=== PATIENT | male | born 1990 | race Caucasian/White ===

== ENCOUNTER 2018-08-07 20:09 | Emergency (ER) | payer SELFPAY ==
[~2018-08-07] VITALS: Ht 177.8 cm; Wt 104.3 kg
--- NOTE | 2018-08-07 20:11 | NUR ---
Pt w/c assisted to bed 2.
[2018-08-07 20:15] VITALS: BP 157/101
[2018-08-07 20:19] VITALS: BP 157/101
--- NOTE | 2018-08-07 20:19 | NUR ---
BIB SELF. AAO X4 PT REFFERRED FROM URGENT CARE FOR LACERATION TO THE BACK OF LEFT ANKLE, PT STATES HE CUT HIS ANKLE AROUND 2AM ON [employer] [facility] [employer], PT ADMITS TO DRINKING AT THE TIME OF INCIDENT. UNKOWN LAST TETANUS VACCINATION. BANDAGE OVER WOUND AT THIS TIME, BLEEDING CONTROLLED. CAP REFILL <3 SECS TO L FOOT, + SENSATION. PT UNABLE TO FULLY BEND FOOT UP. PT STATES 6/10 WHEN AMBULATING. ER TO EVALUATE PT.
--- NOTE | 2018-08-07 20:26 | NUR ---
KAREN MARTINEZ AT BEDSIDE FOR PT EVAL
[2018-08-07] MEDS ORDERED: BACITRACIN OINT 500 UNITS/GM PKT TP ONE (20:35)
--- NOTE | 2018-08-07 20:52 | NUR ---
PT WOUND COVERED WITH NON ADHERENT DRESSING AND WRAPPED WITH ROLLER GAUZE AFTER BACITRACIN APPLIED. +CSM
--- NOTE | 2018-08-07 20:57 | NUR ---
Pt report given to SLIM Torres. Transfer of care at this time.
--- NOTE | 2018-08-07 21:15 | NUR ---
Patient discharged with v/s stable. Written and verbal after care instructions given and explained. Patient alert, oriented and verbalized understanding of instructions. Wheelchair assisted by EMT. All questions addressed prior to discharge. ID band removed. Patient advised to follow up with PMD. Rx of ibuprofen and bacitriacin given. Patient educated on indication of medication including possible reaction and side effects. Opportunity to ask questions provided and answered.
== END 2018-08-07 21:15 | disposition home or self-care (01) ==
LOC: MED 20:09
DX: S91.312A Laceration without foreign body, left foot, initial encounter (principal); W23.0XXA Caught, crushed, jammed, or pinched between moving objects, initial encounter; Y93.01 Activity, walking, marching and hiking; Y92.89 Other specified places as the place of occurrence of the external cause; Y99.8 Other external cause status
CPT/HCPCS: 90471; 90715; 99283

== ENCOUNTER 2018-10-08 19:59 | Emergency (ER) | payer OTHER ==
[~2018-10-08] VITALS: Ht 177.8 cm; Wt 99.8 kg
[2018-10-08 20:11] VITALS: BP 148/78
[2018-10-08 21:38] VITALS: BP 148/78
== END 2018-10-08 21:38 | disposition home or self-care (01) ==
LOC: MED 19:59
DX: S80.862A Insect bite (nonvenomous), left lower leg, initial encounter (principal); S80.861A Insect bite (nonvenomous), right lower leg, initial encounter; L03.116 Cellulitis of left lower limb; W57.XXXA Bitten or stung by nonvenomous insect and other nonvenomous arthropods, initial encounter; Y93.89 Activity, other specified; Y92.89 Other specified places as the place of occurrence of the external cause; Y99.8 Other external cause status
CPT/HCPCS: 99283